=== PATIENT | female | born 1950 | race Caucasian/White ===

== ENCOUNTER 2017-06-03 06:03 | Emergency (ER) | payer MEDICARE ==
[~2017-06-03] VITALS: Ht 157.5 cm; Wt 52.0 kg
[2017-06-03 06:12] VITALS: BP 0/0
== END 2017-06-03 07:20 | disposition expired ==
LOC: EMS 06:06 → EDBD 06:06 → EMS 07:20
DX: I46.9 Cardiac arrest, cause unspecified (principal); E11.9 Type 2 diabetes mellitus without complications; I10 Essential (primary) hypertension
CPT/HCPCS: 92950; 99285